=== PATIENT | male | born 1990 | race Caucasian/White ===

== ENCOUNTER 2018-11-08 19:34 | Emergency (ER) | payer MEDICAID ==
[2018-11-08] MEDS: KETOROLAC 60 MG INJ IM (20:46)
[2018-11-08 20:52] LABS: ADD MAN DIFF? NO
[2018-11-08 20:54] LABS: BASOPHIL # 0.1 10^3/ul (0.0-0.1); BASOPHILS % 0.5 % (0.0-2.0); EOSINOPHILS # 0.2 10^3/ul (0.0-0.5); EOSINOPHILS % 1.6 % (0.0-7.0); HEMOGLOBIN 15.6 g/dl (14.0-18.0); LYMPHOCYTES # 3.3 10^3/ul (0.8-2.9); LYMPHOCYTES % 34.2 % (15.0-51.0); MEAN CORPUSCULAR HEMOGLOBIN 31.7 pg (29.0-33.0); MEAN CORPUSCULAR HGB CONC 33.9 g/dl (32.0-37.0); MEAN CORPUSCULAR VOLUME 93.5 fl (82.0-101.0); MEAN PLATELET VOLUME 10.5 fl (7.4-10.4); MONOCYTE # 0.8 10^3/ul (0.3-0.9); MONOCYTES % 8.3 % (0.0-11.0); NEUTROPHIL # 5.3 10^3/ul (1.6-7.5); NEUTROPHILS % 55.2 % (39.0-77.0); PLATELET COUNT 191 10^3/UL (140-415); RED BLOOD COUNT 4.92 10^6/ul (4.70-6.10); RED CELL DISTRIBUTION WIDTH 11.6 % (11.5-14.5)
[2018-11-08 20:54] LABS: WHITE BLOOD COUNT 9.6 10^3/ul (4.8-10.8)
[2018-11-08] MEDS: DEXAMETHASONE 10 MG/ML 1 ML INJ IM (22:08)
== END 2018-11-08 23:18 | disposition home or self-care (01) ==
LOC: FTE 19:34
DX: M10.9 Gout, unspecified (principal)
CPT/HCPCS: 36415; 73562; 84560; 85025; 96372; 99284-25

== ENCOUNTER 2018-11-17 19:00 | Emergency (ER) | payer MEDICAID ==
[2018-11-17] MEDS: DEXAMETHASONE 10 MG/ML 1 ML INJ IM (20:00)
[2018-11-17] MEDS: KETOROLAC 30 MG INJ IM (20:00)
== END 2018-11-17 21:08 | disposition home or self-care (01) ==
LOC: FTE 19:00
DX: M10.9 Gout, unspecified (principal)
CPT/HCPCS: 96372; 99284-25

== ENCOUNTER 2018-12-27 21:35 | Emergency (ER) | payer MEDICAID ==
[2018-12-27] MEDS: METHYLPREDNISOLONE 125 MG INJ IM (22:22)
[2018-12-27] MEDS: KETOROLAC 60 MG INJ IM (22:22)
[2018-12-27 22:44] LABS: ADD MAN DIFF? NO
[2018-12-27 22:46] LABS: BASOPHILS % 0.4 % (0.0-2.0); EOSINOPHILS # 0.1 10^3/ul (0.0-0.5); EOSINOPHILS % 1.4 % (0.0-7.0); HEMATOCRIT 43.8 % (42.0-52.0); HEMOGLOBIN 14.8 g/dl (14.0-18.0); LYMPHOCYTES # 2.7 10^3/ul (0.8-2.9); LYMPHOCYTES % 32.8 % (15.0-51.0); MEAN CORPUSCULAR HEMOGLOBIN 31.7 pg (29.0-33.0); MEAN CORPUSCULAR HGB CONC 33.8 g/dl (32.0-37.0); MEAN CORPUSCULAR VOLUME 93.8 fl (82.0-101.0); MEAN PLATELET VOLUME 10.3 fl (7.4-10.4); MONOCYTE # 0.7 10^3/ul (0.3-0.9); MONOCYTES % 7.9 % (0.0-11.0); NEUTROPHIL # 4.8 10^3/ul (1.6-7.5); NEUTROPHILS % 57.3 % (39.0-77.0); PLATELET COUNT 202 10^3/UL (140-415); RED BLOOD COUNT 4.67 10^6/ul (4.70-6.10)
[2018-12-27 22:46] LABS: WHITE BLOOD COUNT 8.3 10^3/ul (4.8-10.8)
[2018-12-27 23:02] LABS: URIC ACID 8.2 mg/dl (3.1-7.9)
== END 2018-12-27 23:40 | disposition home or self-care (01) ==
LOC: FTE 21:35
DX: M10.9 Gout, unspecified (principal)
CPT/HCPCS: 36415; 84560; 85025; 96372; 99284-25

== ENCOUNTER 2019-01-30 22:20 | Emergency (ER) | payer MEDICAID ==
[2019-01-30] MEDS: METHYLPREDNISOLONE 125 MG INJ IM (23:06)
[2019-01-30] MEDS: KETOROLAC 30 MG INJ IM (23:06)
== END 2019-01-30 23:21 | disposition home or self-care (01) ==
LOC: FTE 23:21
DX: M10.9 Gout, unspecified (principal)
CPT/HCPCS: 96372; 99284-25